=== PATIENT | male | born 1995 | race Caucasian/White ===

== ENCOUNTER 2017-12-12 22:24 | Emergency (ER) | payer BC ==
[2017-12-12 23:24] VITALS: RESP 18
--- NOTE | 2017-12-13 01:15 | US ---
EXAMINATION TYPE: US scrotum with doppler. Grayscale and color Doppler Duplex imaging performed of t liseth scrotum. DATE OF EXAM: 12/13/2017 COMPARISON: NONE CLINICAL HISTORY: Pain. Left testi pain heavy lifting. EXAM MEASUREMENTS: TESTICLES: Right Testicle: 4.5 x 2.7 x 3.2 cm Left Testicle: 4.3 x 2.2 x 3.0 cm EPIDIDYMIS HEAD: Right Epididymis: 1.0 x 0.9 x 1.2 cm Left Epididymis: 0.8 x 0.8 x 0.9 cm Doppler performed to assess for testicular vascularity; good bilateral color flow and waveforms are s een. There is no evidence of testicular torsion. Presence of hydroceles: No Presence of varicoceles: No IMPRESSION: Normal testicular sonogram. No evidence of testicular torsion or mass.
[2017-12-13] MEDS ORDERED: SODIUM CHLORIDE 0.9% 1,000 ML IV STA (02:36)
[2017-12-13] MEDS ORDERED: ONDANSETRON 4 MG/2 ML VIAL IVP STA (02:36)
[2017-12-13 02:53] LABS: Basophils % (A) 0 %; Eosinophils # (A) 0.2 k/uL (0-0.7); Eosinophils % (A) 3 %; HCT 43.2 % (39.0-53.0); HGB 14.6 gm/dL (13.0-17.5); Lymphocytes # (A) 2.7 k/uL (1.0-4.8); Lymphocytes % (A) 38 %; MCH 28.8 pg (25.0-35.0); MCHC 33.9 g/dL (31.0-37.0); MCV 84.8 fL (80.0-100.0); Mean Platelet Volume 6.3; Monocytes # (A) 0.4 k/uL (0-1.0); Monocytes % (A) 6 %; Neutrophils # (A) 3.6 k/uL (1.3-7.7); Neutrophils % (A) 50 %; Platelet Count 239 k/uL (150-450); RBC 5.09 m/uL (4.30-5.90); RDW 12.7 % (11.5-15.5); WBC 7.2 k/uL (3.8-10.6)
[2017-12-13 03:07] LABS: Anion Gap 16 mmol/L; Blood Urea Nitrogen 14 mg/dL (9-20); Calcium 10.2 mg/dL (8.4-10.2); Carbon Dioxide 25 mmol/L (22-30); Chloride 102 mmol/L (98-107); Glucose 98 mg/dL (74-99); Potassium 4.3 mmol/L (3.5-5.1); Sodium 143 mmol/L (137-145)
--- NOTE | 2017-12-13 03:21 | CT ---
EXAM: CT Abdomen and Pelvis Without Intravenous Contrast CLINICAL HISTORY: Left lower quadrant abdominal pain. TECHNIQUE: Axial computed tomography images of the abdomen and pelvis without intravenous contrast. CTDI is 7 mGy and DLP is 360 mGy-cm. This CT exam was performed using one or more of the following dose reduction techniques: automated exposure control, adjustment of the mA and/or kV according to patient size, and/or use of iterative reconstruction technique. COMPARISON: None. FINDINGS: Lung bases: Unremarkable. No mass. No consolidation. ABDOMEN: Liver: Unremarkable. Gallbladder and bile ducts: Unremarkable. No calcified stones. No ductal dilation. Pancreas: Unremarkable. No ductal dilation. Spleen: Unremarkable. No splenomegaly. Adrenals: Unremarkable. No mass. Kidneys and ureters: No tract stones or hydronephrosis. Stomach and bowel: Fecal impaction in rectum. No obstruction. No mucosal thickening. PELVIS: Appendix: No findings to suggest acute appendicitis. Bladder: Unremarkable. No stones. Reproductive: Unremarkable as visualized. ABDOMEN and PELVIS: Intraperitoneal space: Unremarkable. No free air. No significant fluid collection. Bones/joints: No acute fracture. No dislocation. Soft tissues: No evidence of hernia. Vasculature: Unremarkable. No abdominal aortic aneurysm. Lymph nodes: Unremarkable. No enlarged lymph nodes. IMPRESSION: 1. No evidence of hernia. 2. Fecal impaction in rectum. 3. No tract stones or hydronephrosis.
[2017-12-13 03:30] VITALS: BP 139/81; PULSE 68; TEMP 98.3
[2017-12-13 04:03] LABS: Appearance,Urine Clear (Clear); Bilirubin,Urine Negative (Negative); Blood,Urine Negative (Negative); Color,Urine Light Yellow; Glucose,Urine (UA) Negative (Negative); Ketones,Urine Negative (Negative); Leukocyte Esterase,Urine Negative (Negative); Nitrite,Urine Negative (Negative); PH, Urine 6.5 (5.0-8.0); Protein,Urine Negative (Negative); Specific Gravity,Urine 1.007 (1.001-1.035); Urobilinogen,Urine <2.0 mg/dL (<2.0)
--- NOTE | 2017-12-13 04:23 | ED ---
Male Urogenital HPI - General Chief complaint: Urogenital Stated complaint: groin pain/nausea Time Seen by Provider: 12/13/17 01:27 Source: patient, RN notes reviewed, old records reviewed Mode of arrival: ambulatory Limitations: no limitations - History of Present Illness Initial comments: Patient is a 22 year old male with left sided abdominal and groin pain after lifting boxes while moving home from college. Patient states he felt nausea and was close to vomiting. He reports chills. He has been passing gas and stool, denies urinary complaints. Patient reports that the pain shoots from abdomen to scrotum. - Related Data Home Medications Medication Instructions Recorded Confirmed Omeprazole [PriLOSEC] 20 mg PO AC-BRKFST 02/09/15 02/11/15 Allergies Allergy/AdvReac Type Severity Reaction Status Date / Time Cephalosporins Allergy Anaphylaxis Verified 12/12/17 23:23 clarithromycin [From Biaxin] Allergy headache/fe Verified 12/12/17 23:23 taras Penicillins Allergy Anaphylaxis Verified 12/12/17 23:23 sulfadine Allergy headache/fe Uncoded 12/12/17 23:23 taras Review of Systems ROS Statement: Those systems with pertinent positive or pertinent negative responses have been documented in the HPI. ROS Other: All systems not noted in ROS Statement are negative. Past Medical History Past Medical History: Asthma, GERD/Reflux Additional Past Medical History / Comment(s): heart murmer, IBS History of Any Multi-Drug Resistant Organisms: None Reported Past Surgical History: Appendectomy, Hernia Repair Past Anesthesia/Blood Transfusion Reactions: No Reported Reaction Past Psychological History: No Psychological Hx Reported Smoking Status: Current some day smoker - Past Family History Mother Family Medical History: No Reported History General Exam - General Exam Comments Initial Comments: This patient is a well appearing 22 year old male, no distres. Limitations: no limitations General appearance: alert, in no apparent distress Head exam: Present: atraumatic, normocephalic, normal inspection Eye exam: Present: normal appearance, PERRL, EOMI. Absent: scleral icterus, conjunctival injection, periorbital swelling ENT exam: Present: normal exam, mucous membranes moist Neck exam: Present: normal inspection. Absent: tenderness, meningismus, lymphadenopathy Respiratory exam: Present: normal lung sounds bilaterally. Absent: respiratory distress, wheezes, rales, rhonchi, stridor Cardiovascular Exam: Present: regular rate, normal rhythm, normal heart sounds. Absent: systolic murmur, diastolic murmur, rubs, gallop, clicks GI/Abdominal exam: Present: soft, tenderness (LLQ tenderness. ), normal bowel sounds, hernia (I felt a small hernia during lower abomdnal and scrotal exam). Absent: distended, guarding, rebound, rigid exam: Present: normal inspection. Absent: testicular tenderness, urethral discharge, scrotal swelling, vertical testicular lie Back exam: Present: normal inspection Neurological exam: Present: alert, oriented X3, CN II-XII intact Psychiatric exam: Present: normal affect, normal mood Course Vital Signs 12/12/17 12/13/17 23:20 03:29 Temperature 98.1 F 98.3 F Pulse Rate 75 68 Respiratory 18 18 Rate Blood Pressure 139/92 139/81 O2 Sat by Pulse 100 68 L Oximetry Medical Decision Making - Medical Decision Making 22 year old with left groin pain and nausea after heavy lifting. I am concerned for possible hernia, with possible carceration due to vomiting and nasuea. Scrotum US preforemed and negative. Labs are unremarkable. Patient CT shows no evidence of hernia. At this time inforomed patient and mother of results and discussed foollow up with surgeon and PCP and return parameters discussed. All questions answered. - Lab Data Result diagrams: 12/13/17 02:41 12/13/17 02:41 Lab Results 12/13/17 12/13/17 12/13/17 Range/Units 02:41 02:41 03:30 WBC 7.2 (3.8-10.6) k/uL RBC 5.09 (4.30-5.90) m/uL Hgb 14.6 (13.0-17.5) gm/dL Hct 43.2 (39.0-53.0) % MCV 84.8 (80.0-100.0) fL MCH 28.8 (25.0-35.0) pg MCHC 33.9 (31.0-37.0) g/dL RDW 12.7 (11.5-15.5) % Plt Count 239 (150-450) k/uL Neutrophils % 50 % Lymphocytes % 38 % Monocytes % 6 % Eosinophils % 3 % Basophils % 0 % Neutrophils # 3.6 (1.3-7.7) k/uL Lymphocytes # 2.7 (1.0-4.8) k/uL Monocytes # 0.4 (0-1.0) k/uL Eosinophils # 0.2 (0-0.7) k/uL Basophils # 0.0 (0-0.2) k/uL Sodium 143 (137-145) mmol/L Potassium 4.3 (3.5-5.1) mmol/L Chloride 102 (98-107) mmol/L Carbon Dioxide 25 (22-30) mmol/L Anion Gap 16 mmol/L BUN 14 (9-20) mg/dL Creatinine 0.80 (0.66-1.25) mg/dL Est GFR (CKD-EPI)AfAm >90 (>60 ml/min/1.73 sqM) Est GFR (CKD-EPI)NonAf >90 (>60 ml/min/1.73 sqM) Glucose 98 (74-99) mg/dL Calcium 10.2 (8.4-10.2) mg/dL Urine Color Light Yellow Urine Appearance Clear (Clear) Urine pH 6.5 (5.0-8.0) Ur Specific [place] 1.007 (1.001-1.035) Urine Protein Negative (Negative) Urine Glucose (UA) Negative (Negative) Urine Ketones Negative (Negative) Urine Blood Negative (Negative) Urine Nitrite Negative (Negative) Urine Bilirubin Negative (Negative) Urine Urobilinogen <2.0 (<2.0) mg/dL Ur Leukocyte Esterase Negative (Negative) - Radiology Data Radiology results: report reviewed Normal testicular sonogram, no torsion. CT shows no evidence of hernia, evidence of fecal impaction. Disposition Clinical Impression: Mild left inguinal hernia Disposition: HOME SELF-CARE Condition: Good Instructions: Inguinal Hernia (ED) Additional Instructions: Noted no heavy lifting until followed up with PCP and surgeon. Return to the emergency department if any alarming signs or symptoms occur. Is patient prescribed a controlled substance at d/c from ED?: No When asked, does pt state using other controlled substances?: No If prescribed controlled substance>3 days was MAPS reviewed?: No If opioid is for acute pain is fill amount 7 days or less?: No If Rx opioid, was Start Talking consent form obtained?: No Referrals: Tr Perkins MD [Primary Care Provider] - 1-2 days Feliz Braga MD [STAFF PHYSICIAN] - 1-2 days Time of Disposition: 04:22
== END 2017-12-13 04:28 | disposition home or self-care (01) ==
LOC: EC 22:24
DX: K40.90 Unilateral inguinal hernia, without obstruction or gangrene, not specified as recurrent (principal); K21.9 Gastro-esophageal reflux disease without esophagitis; F17.200 Nicotine dependence, unspecified, uncomplicated; Z90.49 Acquired absence of other specified parts of digestive tract; Z79.899 Other long term (current) drug therapy; Z88.1 Allergy status to other antibiotic agents; Z88.0 Allergy status to penicillin; Z88.2 Allergy status to sulfonamides; Z53.20 Procedure and treatment not carried out because of patient's decision for unspecified reasons; Z98.890 Other specified postprocedural states
CPT/HCPCS: 36415; 74176; 76870; 80048; 81003; 85025; 93975; 99284

== ENCOUNTER → 2017-12-27 | Outpatient (CLI) | payer BC ==
--- NOTE | 2017-12-27 15:37 | NM ---
EXAMINATION TYPE: NM hepatobiliary w CCK DATE OF EXAM: 12/27/2017 COMPARISON: CT abdomen pelvis 12/13/2017 HISTORY: Gastroesophageal reflux disease TECHNIQUE: After the intravenous administration of 4.97 mCi Tc 99m Mebrofenin hepatobiliary scintigra phy is performed. Immediate images post injection. FINDINGS: There is satisfactory initial accumulation of tracer by the liver. The gallbladder is visualized wit hin 22 minutes. The small bowel activity is noted within 12 minutes. At one hour CCK was administer ed, patient was injected with 1.6 mcg of Kinevac, and gallbladder ejection fraction is calculated at 96 %. Therefore there is no scintigraphic evidence of cystic or common bile duct obstruction. IMPRESSION: Gallbladder ejection fraction is 96%
== END | disposition home or self-care (01) ==
LOC: RADNMMAIN 12:52
PROVIDERS: ATTEND Surgery
DX: K81.1 Chronic cholecystitis (principal)
CPT/HCPCS: 78227; A9537; J2805

== ENCOUNTER 2018-02-04 07:45 | Day surgery (SDC) | payer BC ==
[2018-01-29 09:04] VITALS: BMI 26.9
[~2018-02-04 07:45] MED LIST: CLINDAMYCIN 900 MG in DEXTROSE 5% IN WATER 50 ML IVPB ONE; DEXAMETHASONE SOD PHOSPHATE 10 MG/ML 1 ML VIAL IV ONE; GENTAMICIN IVPB ONE; HEPARIN SODIUM,PORCINE 5,000 UNIT/ML 1 ML VIAL SQ ONE; LACTATED RINGERS 1,000 ML IV SCH; LIDOCAINE 1% 20 ML VIAL (10MG/ML) FOR IV START INTRADERMA PRN; MIDAZOLAM 2 MG/2 ML VIAL IV PRN; ONDANSETRON 4 MG/2 ML VIAL IVP ONE; Pre Op ABX Message 1 EACH MISC MISCELLANE ONE; SCOPOLAMINE 1.5MG/72HR PATCH TRANSDERM ONE; SODIUM CHLORIDE 0.9% IVPB ONE
[2018-02-04] MEDS ORDERED: LACTATED RINGERS 1,000 ML IV ONE ×2 (08:09→10:43)
--- NOTE | 2018-02-04 08:41 | P.GSHP ---
History of Present Illness H&P Date: 02/04/18 Chief Complaint: Nausea, right upper quadrant pain This a 22-year-old male who presents today for laparoscopic cholecystectomy. Patient has had complaints of nausea and indigestion and right upper quadrant pain. His recent HIDA scan shows a hyperkinetic gallbladder with an elevated ejection fraction. Patient presents today for laparoscopic cholecystectomy. Past Medical History Past Medical History: Asthma, GERD/Reflux, Pneumonia, Supraventricular Tachycardia (SVT) Additional Past Medical History / Comment(s): Hx heart defect, heart murmer, IBS , exercise induced asthma, no meds. History of Any Multi-Drug Resistant Organisms: None Reported Past Surgical History: Appendectomy, Hernia Repair Past Anesthesia/Blood Transfusion Reactions: No Reported Reaction Additional Psychological History / Comment(s): OCD Smoking Status: Current some day smoker Past Alcohol Use History: Occasional Additional Past Alcohol Use History / Comment(s): "Has been smoking a cigar here and there since 16 yrs old." Past Drug Use History: None Reported - Past Family History Mother Family Medical History: No Reported History Medications and Allergies Home Medications Medication Instructions Recorded Confirmed Type No Known Home Medications 01/29/18 01/29/18 History Allergies Allergy/AdvReac Type Severity Reaction Status Date / Time Cephalosporins Allergy Anaphylaxis Verified 01/29/18 08:54 clarithromycin [From Biaxin] Allergy headache/fe Verified 01/29/18 08:54 taras Penicillins Allergy Anaphylaxis Verified 01/29/18 08:54 sulfadine Allergy headache/fe Uncoded 01/29/18 08:54 taras Surgical - Exam Vital Signs Temp Pulse Resp BP Pulse Ox 98.6 F 82 18 144/87 98 02/04/18 08:06 02/04/18 08:06 02/04/18 08:06 02/04/18 08:06 02/04/18 08:06 - General well developed, well nourished, no distress - Eyes PERRL - ENT normal pinna - Neck no masses - Respiratory normal expansion - Cardiovascular Rhythm: regular - Abdomen Abdomen: soft, non tender Assessment and Plan Assessment: Right upper quadrant pain Abnormal HIDA scan We'll perform laparoscopic cholecystectomy
[2018-02-04] MEDS ORDERED: LIDOCAINE 1% INJ 10MG/ML (20 ML MDV) ONE (09:03)
[2018-02-04] MEDS ORDERED: PROPOFOL 10 MG/ML 20 ML VIAL IV ONE (09:03)
[2018-02-04] MEDS ORDERED: SUCCINYLCHOLINE CHLORIDE 100 MG/5 ML SYR IV ONE (09:03)
[2018-02-04] MEDS ORDERED: GLYCOPYRROLATE 0.2 MG/ML 2 ML VIAL ONE (09:03)
[2018-02-04] MEDS ORDERED: fentaNYL (PF) 50 MCG/ML 2 ML AMP ONE (09:03)
[2018-02-04] MEDS ORDERED: ROCURONIUM BROMIDE 10 MG/ML 10 ML VIAL IV ONE (09:03)
[2018-02-04] MEDS ORDERED: MIDAZOLAM 2 MG/2 ML VIAL ONE (09:03)
[2018-02-04] MEDS ORDERED: NEOSTIGMINE 1 MG/ML 10 ML VIAL ONE (09:03)
[2018-02-04] MEDS ORDERED: HYDROmorphone (PF) 1 MG/ML ONE (09:03)
[2018-02-04] MEDS ORDERED: BUPIVACAIN-EPI 0.5%-1:200,000 30 ML VIAL SQ ONE ×2 (09:20→09:23)
--- NOTE | 2018-02-04 09:42 | P.OP ---
Date of Procedure: 02/04/18 Preoperative Diagnosis: Cholecystitis Postoperative Diagnosis: Cholecystitis Procedure(s) Performed: laparoscopic cholecystectomy Anesthesia: LETA Surgeon: Feliz Braga Estimated Blood Loss (ml): 5 Pathology: other (Gallbladder) Condition: stable Disposition: PACU Description of Procedure: The patient was placed on the operating table. The patient received a general endotracheal tube anesthesia. The patients abdomen was prepped and draped in the usual sterile fashion. Through an infraumbilical stab incision, the fascia of the anterior abdominal wall was grasped with a pair of Kochers and then the Veress needle was placed in the peritoneal cavity. Position of the Veress needle was confirmed with positive drop test. The abdomen was then insufflated. After adequate insufflation, the 10 mm trocar was placed in the peritoneal cavity. Following this the laparoscope was placed in the peritoneal cavity. The patient was placed in the head-up, right side up position and then a 5 mm trocar was placed in the right lateral and right subcostal position under direct visualization. A 8 mm trocar was placed in the epigastric position. The gallbladder was grasped in the fundus and infundibulum. Traction on the gallbladder was placed in the lateral and the cephalad positions. The triangle of Calot was visualized.. The cystic duct was bluntly dissected until the union of the cystic duct and common bile duct was seen. The cystic duct was then divided and sealed with the Harmonic scissors. A PDS Endoloop was then placed throughout the cystic duct stump. The cystic artery divided and sealed with the Harmonic scissors. The gallbladder was then removed from the liver bed using Harmonic scissors. The gallbladder was then extracted through the epigastric port site. Operative field was checked for any bleeding spots and Harmonic scissors was used to coagulate the liver bed. The abdomen was irrigated. The trocars were removed. The skin was closed using interrupted 3-0 Vicryl suture. Dermabond dressing were applied. The patient tolerated the procedure well.
--- NOTE | 2018-02-04 09:58 | P.OP ---
Date of Procedure: 02/04/18 Preoperative Diagnosis: GERD Postoperative Diagnosis: Antral gastritis Moderate size hiatal hernia Mild esophagitis Procedure(s) Performed: EGD Anesthesia: MAC Surgeon: Feliz Braga Pathology: other (Antral, esophagus) Condition: stable Disposition: PACU Description of Procedure: The patient's placed on the endoscopy table in the lateral position. He received IV sedation. The gastroscope placed oropharynx passed in the esophagus into the stomach. Scope was then placed through the pylorus. The first and second portion of duodenum appeared normal. Scope was then brought back the antrum this is mildly inflamed. A biopsies performed. The scope was then retroflexed and the remainder of the stomach. Normal. There was a moderate size hiatal hernia. The GE junction was at 38 cm. The distal esophagus was mildly inflamed a biopsies performed. The proximal esophagus appeared normal. The scope was withdrawn from patient.
[2018-02-04 10:07] VITALS: TEMP 97.8
[2018-02-04] MEDS: HYDROmorphone 0.5 MG/0.5 ML SYRINGE IVP PRN ×2 (10:09→10:14)
[2018-02-04 10:19] VITALS: RESP 16
[2018-02-04] MEDS ORDERED: HYDROcodone/APAP 7.5-325MG 1 EACH TAB PO ONE (11:12)
[2018-02-04 12:47] VITALS: BP 132/82; PULSE 81
== END 2018-02-04 12:47 | disposition home or self-care (01) ==
LOC: OR 07:45
PROVIDERS: ATTEND Surgery
DX: K81.1 Chronic cholecystitis (principal); K21.9 Gastro-esophageal reflux disease without esophagitis; J45.909 Unspecified asthma, uncomplicated; I47.1 Supraventricular tachycardia; R01.1 Cardiac murmur, unspecified; Q23.1 Congenital insufficiency of aortic valve; K58.9 Irritable bowel syndrome, unspecified; F17.290 Nicotine dependence, other tobacco product, uncomplicated; Z88.1 Allergy status to other antibiotic agents; Z88.0 Allergy status to penicillin; Z88.2 Allergy status to sulfonamides
CPT/HCPCS: 88304; 47562; J2250; J1644; J1100; J2710; J2405; J2001; J3010; J1580; J1170 ×2; J0330; J2704

== ENCOUNTER 2018-02-18 10:26 | Emergency (ER) | payer BC ==
[2018-02-18 10:40] VITALS: RESP 18
[2018-02-18] MEDS ORDERED: KETOROLAC 30 MG/ML 1 ML VIAL IVP STA (11:17)
[2018-02-18] MEDS ORDERED: PANTOPRAZOLE 40 MG/10 ML VIAL IVP STA (11:17)
[2018-02-18] MEDS ORDERED: ONDANSETRON 4 MG/2 ML VIAL IVP STA (11:17)
[2018-02-18] MEDS ORDERED: SODIUM CHLORIDE 0.9% 1,000 ML IV STA (11:17)
[2018-02-18] MEDS ORDERED: MORPHINE SULFATE 2 MG/ML SYRINGE IVP ONE (11:18)
--- NOTE | 2018-02-18 11:21 | ED ---
Abdominal Pain HPI - General Chief Complaint: Abdominal Pain Stated Complaint: Abd/back pain Time Seen by Provider: 02/18/18 11:00 Source: patient, RN notes reviewed, old records reviewed Mode of arrival: ambulatory Limitations: no limitations - History of Present Illness Initial Comments: This is a 22-year-old male presents emergency department 2 weeks post cholecystectomy with chief complaint of right upper quadrant and diffuse abdominal spasming pain. Patient reports that he is now having pain in his mid spine. Patient states that the pain feels better when he is laying flat. Patient states that he returned to work today and was doing minor lifting when he started having worsening pain. He did have an episode yesterday. Normal stools, normal urination. He states he's had no vomiting episodes. He states when the pain seems to occur starts to cramp up and he feels quite nauseated. - Related Data Home Medications Medication Instructions Recorded Confirmed Acetaminophen Tab [Tylenol Tab] 1,000 mg PO DAILY 02/18/18 02/18/18 Ranitidine HCl [Zantac] 150 mg PO DAILY 02/18/18 02/18/18 Previous Rx's Medication Instructions Recorded Docusate [Colace] 100 mg PO BID #20 capsule 02/04/18 HYDROcodone/APAP 7.5-325MG [[place] 1 tab PO Q4H PRN 3 Days #18 tab 02/04/18 7.5-325] Docusate [Colace] 100 mg PO BID #20 capsule 02/18/18 Allergies Allergy/AdvReac Type Severity Reaction Status Date / Time Cephalosporins Allergy Anaphylaxis Verified 02/18/18 11:09 clarithromycin [From Biaxin] Allergy headache/fe Verified 02/18/18 11:09 taras Penicillins Allergy Anaphylaxis Verified 02/18/18 11:09 sulfadine Allergy headache/fe Uncoded 02/18/18 10:36 taras Review of Systems ROS Statement: Those systems with pertinent positive or pertinent negative responses have been documented in the HPI. ROS Other: All systems not noted in ROS Statement are negative. Past Medical History Past Medical History: Asthma, GERD/Reflux, Pneumonia, Supraventricular Tachycardia (SVT) Additional Past Medical History / Comment(s): Hx heart defect, heart murmer, IBS , exercise induced asthma, no meds. History of Any Multi-Drug Resistant Organisms: None Reported Past Surgical History: Cholecystectomy, Hernia Repair Past Anesthesia/Blood Transfusion Reactions: No Reported Reaction Past Psychological History: No Psychological Hx Reported Smoking Status: Current some day smoker Past Alcohol Use History: Occasional Past Drug Use History: None Reported - Past Family History Mother Family Medical History: No Reported History General Exam - General Exam Comments Initial Comments: This is a 22-year-old male. Alert and oriented. No significant distress. Limitations: no limitations General appearance: alert, in no apparent distress Head exam: Present: atraumatic, normocephalic, normal inspection Eye exam: Present: normal appearance, PERRL, EOMI. Absent: scleral icterus, conjunctival injection, periorbital swelling ENT exam: Present: normal exam Neck exam: Present: normal inspection. Absent: tenderness, meningismus, lymphadenopathy Respiratory exam: Present: normal lung sounds bilaterally. Absent: respiratory distress, wheezes, rales, rhonchi, stridor Cardiovascular Exam: Present: regular rate, normal rhythm, normal heart sounds. Absent: systolic murmur, diastolic murmur, rubs, gallop, clicks GI/Abdominal exam: Present: soft, normal bowel sounds. Absent: distended, tenderness, guarding, rebound, rigid Extremities exam: Present: normal inspection, full ROM, normal capillary refill. Absent: tenderness, pedal edema, joint swelling, calf tenderness Back exam: Present: normal inspection Neurological exam: Present: alert, oriented X3, CN II-XII intact Psychiatric exam: Present: normal affect, normal mood Skin exam: Present: warm, dry, intact, normal color. Absent: rash Course Vital Signs 02/18/18 10:36 Temperature 97.5 F L Pulse Rate 74 Respiratory 18 Rate Blood Pressure 149/102 O2 Sat by Pulse 100 Oximetry Medical Decision Making - Medical Decision Making Referral numbers and minutes today with chief complaint of mid back pain, as well as intermittent cramping abdominal pain. He states he's had normal stools normal urination. No fevers. This time labwork obtained. Unremarkable. Patient is 2 weeks post cholecystectomy. He does have some mild elevation of his liver enzymes. CT abdomen and pelvis was completed. CT is negative for any abnormal fluid collections within the right upper quadrant or ascites. Otherwise normal CT exam. He did have some moderate stool within the right hemicolon. This time we'll put the Patient on some stool softeners. Discussed this with Dr. Archuleta. Patient will follow up with his primary care provider and GI. - Lab Data Result diagrams: 02/18/18 11:53 02/18/18 11:53 Lab Results 02/18/18 02/18/18 02/18/18 Range/Units 11:53 11:53 11:53 WBC 7.8 (3.8-10.6) k/uL RBC 5.09 (4.30-5.90) m/uL Hgb 14.5 (13.0-17.5) gm/dL Hct 43.7 (39.0-53.0) % MCV 85.7 (80.0-100.0) fL MCH 28.4 (25.0-35.0) pg MCHC 33.2 (31.0-37.0) g/dL RDW 12.1 (11.5-15.5) % Plt Count 201 (150-450) k/uL Neutrophils % 79 % Lymphocytes % 13 % Monocytes % 5 % Eosinophils % 2 % Basophils % 0 % Neutrophils # 6.2 (1.3-7.7) k/uL Lymphocytes # 1.0 (1.0-4.8) k/uL Monocytes # 0.4 (0-1.0) k/uL Eosinophils # 0.2 (0-0.7) k/uL Basophils # 0.0 (0-0.2) k/uL PT (9.0-12.0) sec INR (<1.2) APTT (22.0-30.0) sec Sodium 140 (137-145) mmol/L Potassium 4.2 (3.5-5.1) mmol/L Chloride 104 (98-107) mmol/L Carbon Dioxide 25 (22-30) mmol/L Anion Gap 11 mmol/L BUN 15 (9-20) mg/dL Creatinine 0.80 (0.66-1.25) mg/dL Est GFR (CKD-EPI)AfAm >90 (>60 ml/min/1.73 sqM) Est GFR (CKD-EPI)NonAf >90 (>60 ml/min/1.73 sqM) Glucose 89 (74-99) mg/dL Plasma Lactic Acid [place] 1.3 (0.7-2.0) mmol/L Calcium 9.6 (8.4-10.2) mg/dL Total Bilirubin 0.7 (0.2-1.3) mg/dL AST 142 H (17-59) U/L ALT 97 H (21-72) U/L Alkaline Phosphatase 80 (38-126) U/L Total Protein 7.5 (6.3-8.2) g/dL Albumin 4.8 (3.5-5.0) g/dL Amylase 53 (30-110) U/L Lipase 66 (23-300) U/L Urine Color Urine Appearance (Clear) Urine pH (5.0-8.0) Ur Specific [place] (1.001-1.035) Urine Protein (Negative) Urine Glucose (UA) (Negative) Urine Ketones (Negative) Urine Blood (Negative) Urine Nitrite (Negative) Urine Bilirubin (Negative) Urine Urobilinogen (<2.0) mg/dL Ur Leukocyte Esterase (Negative) 02/18/18 02/18/18 Range/Units 11:53 12:44 WBC (3.8-10.6) k/uL RBC (4.30-5.90) m/uL Hgb (13.0-17.5) gm/dL Hct (39.0-53.0) % MCV (80.0-100.0) fL MCH (25.0-35.0) pg MCHC (31.0-37.0) g/dL RDW (11.5-15.5) % Plt Count (150-450) k/uL Neutrophils % % Lymphocytes % % Monocytes % % Eosinophils % % Basophils % % Neutrophils # (1.3-7.7) k/uL Lymphocytes # (1.0-4.8) k/uL Monocytes # (0-1.0) k/uL Eosinophils # (0-0.7) k/uL Basophils # (0-0.2) k/uL PT 10.5 (9.0-12.0) sec INR 1.1 (<1.2) APTT 23.7 (22.0-30.0) sec Sodium (137-145) mmol/L Potassium (3.5-5.1) mmol/L Chloride (98-107) mmol/L Carbon Dioxide (22-30) mmol/L Anion Gap mmol/L BUN (9-20) mg/dL Creatinine (0.66-1.25) mg/dL Est GFR (CKD-EPI)AfAm (>60 ml/min/1.73 sqM) Est GFR (CKD-EPI)NonAf (>60 ml/min/1.73 sqM) Glucose (74-99) mg/dL Plasma Lactic Acid [place] (0.7-2.0) mmol/L Calcium (8.4-10.2) mg/dL Total Bilirubin (0.2-1.3) mg/dL AST (17-59) U/L ALT (21-72) U/L Alkaline Phosphatase (38-126) U/L Total Protein (6.3-8.2) g/dL Albumin (3.5-5.0) g/dL Amylase (30-110) U/L Lipase (23-300) U/L Urine Color Light Yellow Urine Appearance Clear (Clear) Urine pH 6.5 (5.0-8.0) Ur Specific [place] 1.009 (1.001-1.035) Urine Protein Negative (Negative) Urine Glucose (UA) Negative (Negative) Urine Ketones Negative (Negative) Urine Blood Negative (Negative) Urine Nitrite Negative (Negative) Urine Bilirubin Negative (Negative) Urine Urobilinogen <2.0 (<2.0) mg/dL Ur Leukocyte Esterase Negative (Negative) - Radiology Data Radiology results: report reviewed Status post cholecystectomy. No abnormal fluid collection in the gallbladder ascites fluid or biliary ductal dilation noted. Stool within the right hemicolon noted. Disposition Clinical Impression: Abdominal pain, Back pain, Constipation Disposition: HOME SELF-CARE Condition: Good Instructions: Abdominal Pain (ED) Additional Instructions: Patient advised to continue to take stool softeners to promote bowel movements. Patient should follow-up with primary care physician and GI specialist. Return to emergency department if any alarming signs or symptoms occur. Prescriptions: Docusate [Colace] 100 mg PO BID #20 capsule Is patient prescribed a controlled substance at d/c from ED?: No Referrals: Tr Perkins MD [Primary Care Provider] - 1-2 days Time of Disposition: 14:50
[2018-02-18 12:14] LABS: Basophils % (A) 0 %; Eosinophils # (A) 0.2 k/uL (0-0.7); Eosinophils % (A) 2 %; HCT 43.7 % (39.0-53.0); HGB 14.5 gm/dL (13.0-17.5); Lymphocytes % (A) 13 %; MCH 28.4 pg (25.0-35.0); MCHC 33.2 g/dL (31.0-37.0); MCV 85.7 fL (80.0-100.0); Mean Platelet Volume 6.3; Monocytes # (A) 0.4 k/uL (0-1.0); Monocytes % (A) 5 %; Neutrophils # (A) 6.2 k/uL (1.3-7.7); Neutrophils % (A) 79 %; Platelet Count 201 k/uL (150-450); RBC 5.09 m/uL (4.30-5.90); RDW 12.1 % (11.5-15.5); WBC 7.8 k/uL (3.8-10.6)
[2018-02-18 12:31] LABS: INR 1.1 (<1.2); Partial Thromboplastin Time 23.7 sec (22.0-30.0); Prothrombin Time 10.5 sec (9.0-12.0)
[2018-02-18 12:32] LABS: ALT 97 U/L (21-72); AST 142 U/L (17-59); Albumin 4.8 g/dL (3.5-5.0); Alkaline Phosphatase 80 U/L (38-126); Amylase 53 U/L (30-110); Anion Gap 11 mmol/L; Blood Urea Nitrogen 15 mg/dL (9-20); Calcium 9.6 mg/dL (8.4-10.2); Carbon Dioxide 25 mmol/L (22-30); Chloride 104 mmol/L (98-107); Glucose 89 mg/dL (74-99); Lipase 66 U/L (23-300); Potassium 4.2 mmol/L (3.5-5.1); Sodium 140 mmol/L (137-145); Total Bilirubin 0.7 mg/dL (0.2-1.3); Total Protein 7.5 g/dL (6.3-8.2)
[2018-02-18 13:21] LABS: Appearance,Urine Clear (Clear); Bilirubin,Urine Negative (Negative); Blood,Urine Negative (Negative); Color,Urine Light Yellow; Glucose,Urine (UA) Negative (Negative); Ketones,Urine Negative (Negative); Leukocyte Esterase,Urine Negative (Negative); Nitrite,Urine Negative (Negative); PH, Urine 6.5 (5.0-8.0); Protein,Urine Negative (Negative); Specific Gravity,Urine 1.009 (1.001-1.035); Urobilinogen,Urine <2.0 mg/dL (<2.0)
--- NOTE | 2018-02-18 14:37 | CT ---
EXAMINATION TYPE: CT abdomen pelvis w con DATE OF EXAM: 02/18/2018 COMPARISON: 12/13/2017 HISTORY: 22-year-old male RUQ pain, postcholecystectomy 1 week ago TECHNIQUE: Contiguous axial scanning of the abdomen and pelvis following administration of 100 ml Iso rupal 300 IV contrast. Delayed images through the kidneys and coronal/sagittal reconstructions perform ed. CT DLP: 1104 mGycm Automated exposure control for dose reduction was used. FINDINGS: Heart normal size without pericardial effusion. Lung bases clear without pleural effusion. No focal liver lesion or biliary ductal dilatation. Portal venous system is patent Status post cholecystectomy. No abnormal fluid collection in the gallbladder fossa. Adrenal glands, kidneys, spleen with a couple hilar splenules, and pancreas show no gross abnormality . No dilated small bowel, free fluid, or free air. There is moderate stool in the right hemicolon. No pericolonic inflammatory change seen. No mesenteric or retroperitoneal lymphadenopathy. Bladder urine distended. No abnormal fluid collection in the pelvis or pelvic lymphadenopathy. Suspec t a small scrotal federica in the right hemiscrotum. Bones: No osseous destructive process. IMPRESSION: STATUS POST CHOLECYSTECTOMY. NO ABNORMAL FLUID COLLECTION IN THE GALLBLADDER FOSSA, ASCITES FLUID, OR BILIARY DUCTAL DILATATION SEEN. MODERATE STOOL IN THE RIGHT HEMICOLON.
[2018-02-18 15:42] VITALS: BP 121/76; PULSE 76; TEMP 97.6
== END 2018-02-18 15:42 | disposition home or self-care (01) ==
LOC: EC 10:26
DX: K59.00 Constipation, unspecified (principal); M54.9 Dorsalgia, unspecified; R11.0 Nausea; R94.5 Abnormal results of liver function studies; K21.9 Gastro-esophageal reflux disease without esophagitis; F17.200 Nicotine dependence, unspecified, uncomplicated; Z87.19 Personal history of other diseases of the digestive system; Z90.49 Acquired absence of other specified parts of digestive tract; Z79.899 Other long term (current) drug therapy; Z88.1 Allergy status to other antibiotic agents; Z88.0 Allergy status to penicillin; Z88.2 Allergy status to sulfonamides; Z53.20 Procedure and treatment not carried out because of patient's decision for unspecified reasons
CPT/HCPCS: 36415; 80053; 82150; 83605; 83690; 85025; 85610; 85730; 81003; 87040; 74177; 99284; 96374; 96375 ×2; 96361; J2405; J1885; C9113; Q9967

== ENCOUNTER → 2018-07-03 | Outpatient (CLI) | payer BC ==
--- NOTE | 2018-07-04 08:53 | US ---
EXAMINATION TYPE: US kidneys/renal and bladder DATE OF EXAM: 07/03/2018 COMPARISON: NONE CLINICAL HISTORY: R30.0 Dysuria. Dysuria EXAM MEASUREMENTS: Right Kidney: 10.2 x 4.4 x 4.0 cm Left Kidney: 10.5 x 4.7 x 4.3 cm Right Kidney: No hydronephrosis or masses seen Left Kidney: No hydronephrosis or masses seen Bladder: wnl Bilateral Jets seen: Yes There is no evidence for hydronephrosis at this point in time. No nephrolithiasis is seen. No paul s are identified. The urinary bladder is anechoic. Bilateral ureteral jets are seen. IMPRESSION: No distinct abnormality appreciated.
== END | disposition home or self-care (01) ==
LOC: RADUSWWP 17:07
PROVIDERS: ATTEND Family Medicine
DX: R30.0 Dysuria (principal)
CPT/HCPCS: 76770

== ENCOUNTER 2019-01-26 23:34 | Emergency (ER) | payer BC, MEDICAID, OTHER ==
[2019-01-26 23:48] VITALS: BP 152/94; PULSE 88; RESP 18; TEMP 97.8
[2019-01-27] MEDS ORDERED: BACITRACIN 500 UNIT/GM OINT 28.4 GM TUBE TOPICAL ONE (00:12)
--- NOTE | 2019-01-27 00:13 | ED ---
General Adult HPI - General Chief complaint: Burn/Smoke Inhalation Stated complaint: [facility] Lft Arm Burn Time Seen by Provider: 01/26/19 23:49 Source: patient, RN notes reviewed, old records reviewed Limitations: no limitations - History of Present Illness Initial comments: 23-year-old male patient since ED with chief complaint of burn on left forearm which occurred yesterday. Patient reports that he spilled hot coffee on himself. Patient reports that he had a blister which formed today. Patient reports that he also had some minor coffee spilling on his anterior abdomen, however denies any burn. Patient reports that he had his tetanus updated approximately 3 months ago. Denies any other complaints at this time. Systemic: Pt denies fatigue, fever/chills, rash. Pt denies weakness, night sweats, weight loss. Neuro: Pt denies headache, visual disturbances, syncope or pre-syncope. HEENT: Pt denies ocular discharge or irritation, otalgia, rhinorrhea, pharyngitis or notable lymphadenopathy. Cardiopulmonary: Pt denies chest pain, SOB, heart palpitations, dyspnea on exertion. Abdominal/GI: Pt denies abdominal pain, n/v/d. : Pt denies dysuria, burning w/ urination, frequency/urgency. Denies new onset urinary or bowel incontinence. MSK: Pt denies myalgia, loss of strength or function in extremities. Neuro: Pt denies new onset weakness, paresthesias. - Related Data Home Medications Medication Instructions Recorded Confirmed Acetaminophen Tab [Tylenol Tab] 1,000 mg PO DAILY 02/18/18 02/18/18 Ranitidine HCl [Zantac] 150 mg PO DAILY 02/18/18 02/18/18 Previous Rx's Medication Instructions Recorded Docusate [Colace] 100 mg PO BID #20 capsule 02/04/18 HYDROcodone/APAP 7.5-325MG [[place] 1 tab PO Q4H PRN 3 Days #18 tab 02/04/18 7.5-325] Docusate [Colace] 100 mg PO BID #20 capsule 02/18/18 Bacitracin Oint 28.4 gm TOPICAL BID 14 Days #1 tube 01/27/19 Allergies Allergy/AdvReac Type Severity Reaction Status Date / Time Cephalosporins Allergy Anaphylaxis Verified 02/18/18 11:09 clarithromycin [From Biaxin] Allergy headache/fe Verified 02/18/18 11:09 taras Penicillins Allergy Anaphylaxis Verified 02/18/18 11:09 sulfadine Allergy headache/fe Uncoded 02/18/18 10:36 taras Review of Systems ROS Statement: Those systems with pertinent positive or pertinent negative responses have been documented in the HPI. ROS Other: All systems not noted in ROS Statement are negative. Past Medical History Past Medical History: Asthma, GERD/Reflux, Pneumonia, Supraventricular Tachycardia (SVT) Additional Past Medical History / Comment(s): Hx heart defect, heart murmer, IBS, exercise induced asthma, no meds. History of Any Multi-Drug Resistant Organisms: None Reported Past Surgical History: Cholecystectomy, Hernia Repair Past Anesthesia/Blood Transfusion Reactions: No Reported Reaction Past Psychological History: No Psychological Hx Reported Smoking Status: Current some day smoker Past Alcohol Use History: Occasional Past Drug Use History: None Reported - Past Family History Mother Family Medical History: No Reported History General Exam - General Exam Comments Initial Comments: Constitutional: NAD, AOX3, Pt has pleasant affect. HEENT: NC/AT, trachea midline, neck supple, no lymphadenopathy. Posterior pharynx non erythematous, without exudates. External ears appear normal, without discharge. Mucous membranes moist. Eyes PERRLA, EOM intact. There is no scleral icterus. No pallor noted. Cardiopulmonary: RRR, no murmurs, rubs or gallops, no JVD noted. Lungs CTAB in anterior and posterior rodgers. No peripheral edema. Abdominal exam: Abdomen soft and non-distended. Abdomen non-tender to palpation in all 4 quadrants. Bowel sounds active in LLQ. No hepatosplenomegaly. No ecchymosis Neuro: CN II-XII grossly intact. No nuchal rigidity. No raccon eyes, no james sign, no hemotympanum. No cervical spinal tenderness. MSK: No posterior calf tenderness bilaterally, homans sign negative bilaterally. Posterior tibialis and radial pulse +2 bilaterally. Sensation intact in upper and lower extremities. Full active ROM in upper and lower extremities, 5/5 stregnth. Derm: Superficial partial-thickness burn noted on left wrist. Mild blister noted on dorsal aspect. Anterior abdomen does not reveal any burn. Limitations: no limitations Course Vital Signs 01/26/19 23:44 Temperature 97.8 F Pulse Rate 88 Respiratory 18 Rate Blood Pressure 152/94 O2 Sat by Pulse 97 Oximetry Medical Decision Making - Medical Decision Making 23-year-old male patient since ED with chief complaint of burn on left forearm which occurred yesterday. Patient reports that he spilled hot coffee on himse lf. Patient reports that he had a blister which formed today. Patient reports that he also had some minor coffee spilling on his anterior abdomen, however denies any burn. Patient reports that he had his tetanus updated approximately 3 months ago. Denies any other complaints at this time. Pt VSS, afebrile. Physical exam displayed: Superficial partial-thickness burn noted on left wrist. Mild blister noted on dorsal aspect. Anterior abdomen does not reveal any burn. Patient will be treated with bacitracin cream, will monitor for signs symptoms of infection. Patient will follow up with primary care provider, return to ER if condition worsens. Case discussed with Dr. Thornton. Disposition Clinical Impression: Superficial partial thickness burn of upper extremity Disposition: HOME SELF-CARE Condition: Stable Instructions (If sedation given, give patient instructions): Superficial Burn (ED) Additional Instructions: Patient to adhere to previously discussed treatment plan and will take medication(s) as directed. Patient to follow up with PCP in 1-2 days. Patient to return to ED if symptoms do not improve. Please monitor for signs and symptoms of infection including: redness, warmth, drainage, discharge. Please return to ED if these signs or symptoms occur, new signs or symptoms develop or if condition worsens in anyway. Prescriptions: Bacitracin Oint 28.4 gm TOPICAL BID 14 Days #1 tube Is patient prescribed a controlled substance at d/c from ED?: No Referrals: Tr Perkins MD [Primary Care Provider] - 1-2 days
== END 2019-01-27 00:31 | disposition home or self-care (01) ==
LOC: EC 23:34
DX: T22.212A Burn of second degree of left forearm, initial encounter (principal); T31.0 Burns involving less than 10% of body surface; K21.9 Gastro-esophageal reflux disease without esophagitis; K58.9 Irritable bowel syndrome, unspecified; F17.200 Nicotine dependence, unspecified, uncomplicated; Z79.899 Other long term (current) drug therapy; Z88.0 Allergy status to penicillin; Z88.1 Allergy status to other antibiotic agents; Z88.2 Allergy status to sulfonamides; X10.0XXA Contact with hot drinks, initial encounter; Y92.89 Other specified places as the place of occurrence of the external cause; Y99.0 Civilian activity done for income or pay
CPT/HCPCS: 16020; 99283

== ENCOUNTER → 2019-02-26 | Outpatient (CLI) | payer OTHER ==
--- NOTE | 2019-02-26 14:40 | US ---
EXAMINATION TYPE: US kidneys/renal and bladder DATE OF EXAM: 02/26/2019 COMPARISON: Renal ultrasound dated 07/03/2018 CLINICAL HISTORY: R30.0 dysuria, N53.12 Painful ejaculation. Patient states he bladder problems as it he feels like he goes frequently or not enough. EXAM MEASUREMENTS: Right Kidney: 9.2 x 5.2 x 4.6 cm Left Kidney: 10.6 x 5.2 x 5.5 cm Right Kidney: No hydronephrosis or masses seen Left Kidney: No hydronephrosis or masses seen Bladder: distended, wnl Bilateral Jets seen There is no evidence for hydronephrosis at this point in time. No nephrolithiasis is seen. No paul s are identified. The urinary bladder is anechoic. Bilateral ureteral jets are seen. IMPRESSION: Unremarkable renal ultrasound. No hydronephrosis or nephrolithiasis. Urinary bladder appears anechoic and unremarkable.
== END | disposition home or self-care (01) ==
LOC: RADUSWWP 13:49
PROVIDERS: ATTEND Urology
DX: R30.0 Dysuria (principal)
CPT/HCPCS: 76770

== ENCOUNTER 2019-06-19 09:11 | Day surgery (SDC) | payer OTHER ==
[2019-06-17 12:39] VITALS: BMI 31.3
[~2019-06-19 09:11] MED LIST changes: -CLINDAMYCIN 900 MG in DEXTROSE 5% IN WATER 50 ML IVPB ONE; -DEXAMETHASONE SOD PHOSPHATE 10 MG/ML 1 ML VIAL IV ONE; -GENTAMICIN IVPB ONE; -HEPARIN SODIUM,PORCINE 5,000 UNIT/ML 1 ML VIAL SQ ONE; -MIDAZOLAM 2 MG/2 ML VIAL IV PRN; -ONDANSETRON 4 MG/2 ML VIAL IVP ONE; -Pre Op ABX Message 1 EACH MISC MISCELLANE ONE; -SCOPOLAMINE 1.5MG/72HR PATCH TRANSDERM ONE; -SODIUM CHLORIDE 0.9% IVPB ONE
[2019-06-19] MEDS ORDERED: LACTATED RINGERS 1,000 ML IV ONE (09:33)
[2019-06-19 09:34] VITALS: TEMP 97.6
[2019-06-19] MEDS ORDERED: PROPOFOL 10 MG/ML 20 ML VIAL IV ONE (10:25)
[2019-06-19] MEDS ORDERED: LIDOCAINE 1% INJ 10MG/ML (20 ML MDV) ONE (10:25)
--- NOTE | 2019-06-19 10:40 | P.PCN ---
Date of Procedure: 06/19/19 Procedure(s) Performed: BRIEF HISTORY: Patient is a 23-year-old, pleasant, male, scheduled for an upper endoscopy as a part of evaluation of long-standing history of GERD. He also complained of occasional epigastric discomfort and abdominal bloating. He was started on omeprazole 20 mg daily for the last 3 weeks and feels much better.. PROCEDURE PERFORMED: Esophagogastroduodenoscopy with biopsy. PREOPERATIVE DIAGNOSIS: Long-standing history of GERD/epigastric pain and abdominal bloating. IV sedation per anesthesia. PROCEDURE: After informed consent was obtained, the patient was brought into the endoscopy unit. IV sedation was administered by Anesthesia under continuous monitoring. Initially the Olympus GIF-140 video endoscope was inserted into the mouth. Esophagus intubated without any difficulty. It was gradually advanced into the stomach and duodenum and carefully examined. The bulb and the second part of the duodenum appeared normal. Biopsies were done from the duodenum to rule out celiac disease The scope at this time was withdrawn to the stomach, adequately insufflated with air, and upon careful examination, mucosa of the antrum, had mild gastritis and biopsies were done from this area. The body, cardia and the fundus appeared normal. The scope was then withdrawn into the esophagus. The GE junction was located at 39 cm from the incisors. The esophagus appeared normal. There were no erosions or ulcerations seen and the patient tolerated the procedure well. IMPRESSION: 1. Mild antral gastritis. 2. No evidence of esophagitis or peptic ulcer disease. RECOMMENDATIONS: The findings of this examination were discussed with the patient as well as his family. He was advised to continue with omeprazole 20 mg daily and follow antrum reflux measures. He will also follow with the biopsy results.
[2019-06-19 10:45] VITALS: RESP 16
[2019-06-19 11:04] VITALS: BP 129/85; PULSE 73
== END 2019-06-19 11:15 | disposition home or self-care (01) ==
LOC: ORWHC2ENDO 09:11
PROVIDERS: ATTEND Internal Medicine Gastroenterology
DX: K29.50 Unspecified chronic gastritis without bleeding (principal); K21.9 Gastro-esophageal reflux disease without esophagitis; K08.89 Other specified disorders of teeth and supporting structures; Z88.0 Allergy status to penicillin; Z88.2 Allergy status to sulfonamides; Z88.1 Allergy status to other antibiotic agents; Z79.899 Other long term (current) drug therapy; Z98.890 Other specified postprocedural states
CPT/HCPCS: 88305; 43239; J2001; J2704